=== PATIENT | female | born 2000 | race Caucasian/White ===

== ENCOUNTER → 2022-03-25 13:20 | Outpatient (BNVA) | payer MEDICAID, SELFPAY | PROVIDERS: Visit Provider Nurse Practitioner Women's Health | DX: N92.6 Irregular menstruation, unspecified (principal) | CPT/HCPCS: 81025 ==

== ENCOUNTER → 2022-04-01 13:47 | Outpatient (BNVA) | payer MEDICAID, SELFPAY | PROVIDERS: Visit Provider Obstetrics & Gynecology | DX: Z34.90 Encounter for supervision of normal pregnancy, unspecified, unspecified trimester (principal) | CPT/HCPCS: 80307; 81000; 84443; 85025; 86592; 86762; 86803; 86850; 86900; 87086; 87340; 87806 ==

== ENCOUNTER 2022-04-10 10:24 | Outpatient (CLI) | payer MEDICAID, SELFPAY ==
[2022-04-10 14:12] LABS: Creatinine 24 Hour Urine 1198.5 mg/dL (601-1689); Total Volume Urine 1275 ml; Total Volume, Urine 1275 mL; Urine Creatinine 94 mg/dL (28-217); Urine Total Protein 5.3 mg/dL (0-150); Urine Total Protein 24 Hour 67.6 mg/24hr (0-150)
== END 2022-04-10 10:25 | disposition home or self-care (01) ==
LOC: LAB 10:25
PROVIDERS: PCP Obstetrics & Gynecology; Visit Provider Obstetrics & Gynecology
DX: Z01.89 Encounter for other specified special examinations (principal)
CPT/HCPCS: 82570; 84156

== ENCOUNTER → 2022-04-22 13:34 | Outpatient (BNVA) | payer MEDICAID, SELFPAY | PROVIDERS: PCP Obstetrics & Gynecology; Visit Provider Obstetrics & Gynecology | DX: O09.899 Supervision of other high risk pregnancies, unspecified trimester (principal); Z3A.00 Weeks of gestation of pregnancy not specified | CPT/HCPCS: 81000; 87086; 87491; 87591; 87661; 88175 ==

== ENCOUNTER 2022-05-02 18:51 | Emergency (ER) | payer MEDICAID, SELFPAY ==
[2022-05-02 18:55] VITALS: BP 120/77; PULSE 69; RESP 18; TEMP 36.8; O2SAT 100; BMI 29.0
[2022-05-02 19:11] LABS: Add Urine Microscopic? NO; Charge for UA Resulting for Rev
[2022-05-02 19:13] LABS: Bilirubin Urine Neg (Negative); Blood Urine Neg (Negative); Glucose Urine UA Norm (Normal); Ketones Urine Negative (Negative); Leukocyte Esterase Urine Negative (Negative); Nitrate Urine Negative (Negative); Protein Urine Neg (Negative); Urine Appearance Clear (CLEAR); Urine Color Straw (Yellow); Urobilinogen Urine Neg (Negative); pH Urine 7 (5-7)
[2022-05-02 19:29] LABS: Basophils % 0.3 %; Eosinophils # 0.1 10^3/uL (0.0-0.8); Eosinophils % 0.6 %; Hematocrit 41.6 % (37.0-47.0); Hemoglobin 14.1 g/dL (11.5-15.3); Lymphocytes # 2.5 10^3/uL (0.8-4.8); Lymphocytes % 24.5 %; Mean Corpuscular HGB Conc 33.9 g/dL (30.0-36.0); Mean Corpuscular Hemoglobin 29.8 pg (28.0-34.0); Mean Corpuscular Volume 87.9 fl (81-99); Mean Platelet Volume 10.8 fL (7.4-10.4); Monocytes # 0.5 10^3/uL (0.2-0.9); Monocytes % 4.5 %; Neutrophils # 6.95 10^3/uL (1.8-7.7); Neutrophils % 69.5 %; Nucleated Red Blood Cells % 0 %; Platelet Count 198 10^3/cmm (130-400); Red Blood Count 4.73 10^6/uL (4.1-5.3); Red Cell Distribution Width 11.9 % (12.1-15.1)
[2022-05-02 20:03] LABS: Alanine Aminotransferase 17 U/L (0-33); Albumin Level 3.9 g/dL (3.5-5.2); Alkaline Phosphatase 52 U/L (35-105); Anion Gap 11.7 (5-19); Aspartate Amino Transferase 19 U/L (0-32); Blood Urea Nitrogen 8 mg/dL (6-20); Calcium 9.5 mg/dL (8.5-10.5); Carbon Dioxide 25 mmol/L (22-29); Chloride 98 mmol/L (98-107); Globulin 3.2 g/dL (1.3-4.6); Glomerular Filtration Rate 199.6 mL/min (90-130); Glucose 83 mg/dL (65-115); Osmolality Calculated 269 mOsm/kg (285-295); Potassium 3.7 mmol/L (3.5-5.1); Sodium 131 mmol/L (136-145); Total Bilirubin 0.2 mg/dL (0.15-1.2); Total Protein 7.1 g/dL (6.6-8.7)
--- NOTE | 2022-05-02 20:11 | ED_ITS ---
HPI - Dizziness General: Chief Complaint: Dizziness Stated Complaint: dizzy, headache Time Seen by Provider: 05/02/22 20:00 Source: patient Mode of arrival: ambulatory Limitations: no limitations History of Present Illness: HPI Narrative: 21-year-old female who is currently 14 weeks states that she has had some dizziness over the last 2 weeks. States she had some nausea and with standing she had some feeling like she may pass out denies any vomiting denies any abdominal pain denies any chest pain or headache her blood pressure here is normal. Associated symptoms: Denies chest pain, chills, nausea or vomiting Review of Systems Const: Denies: fever(s), chills, body aches or change in appetite Eyes: Denies: blurry vision or eye discomfort ENMT: Denies: throat pain or dental pain Card: Denies: chest pain Resp: Denies: dyspnea GI: Denies: abdominal pain, nausea, vomiting or diarrhea : Denies: dysuria Musc: Denies: neck pain or back pain Skin/Breast: Denies: rash Neuro: Reports: dizziness Psych: Denies: depression Pradip/Lymph: Denies: easy bruising All/Imm: Denies: urticaria PFSH ED PFSH: Medical History History of pre-eclampsia induced at 36 weeks due to development of pre-eclampsia with first No pertinent past medical history neghx: htn,dm,thyroid,dvt/pe PCP: None Surgical History No pertinent past surgical history Family History Family/Other Breast cancer Paternal Aunt--dx age unknown Grandmother Diabetes Maternal Grandfather Diabetes Maternal Father Heart disease Hypertension Denies family history of Colon cancer Ovarian cancer Hypercholesteremia Uterine cancer Thyroid disease Stroke Social History Smoking and tobacco status: never smoked Female Reproductive History: Date of last menstrual period: 01/20/22 Physical Exam Const: COMMON NORMALS: no acute distress, patient oriented x3 and healthy appearing HENMT: COMMON NORMALS: normocephalic and atraumatic HEAD & SCALP: normocephalic and atraumatic Eye: COMMON NORMALS: Equal, round and reactive pupils present and EOMs intact bilaterally PUPIL: Yes Equal, round and reactive pupils present Neck/C-Spine: COMMON NORMALS: full ROM and supple Chest: COMMONS NORMALS: normal inspection of the chest and normal palpation of entire chest wall Resp: COMMON NORMALS: normal respiratory effort, No retractions, No use of accessory muscles and clear to auscultation bilaterally AUSCULTATION: clear to auscultation bilaterally Cardio: COMMON NORMALS: regular rate, regular rhythm and No murmurs present (Cardio) RATE: regular rate RHYTHM: regular rhythm GI: COMMON NORMALS: Normal to inspection, nondistended, normoactive bowel sounds present, Soft to palpation, non-tender and no masses PALPATION: Yes Soft to palpation Extremity: COMMON NORMALS: normal to inspection and full ROM Neuro: COMMON NORMALS: patient oriented x3, moves all extremities and no focal motor deficits Psych: COMMON NORMALS: mental status grossly normal, Normal thought process present and cooperative THOUGHT PROCESS: Normal thought process present Skin: COMMON NORMALS: no rashes or lesions noted and no wounds GENERAL SKIN EXAM: no rashes or lesions noted Course Vital Signs: Vital signs: Vital Signs Temperature 98.3 F 05/02/22 20:27 Pulse Rate 69 05/02/22 20:27 Respiratory Rate 18 05/02/22 20:27 Blood Pressure 120/77 05/02/22 20:27 Pulse Oximetry 100 05/02/22 20:27 Oxygen Delivery Me thod 05/02/22 20:27 MDM - Dizziness Medical Decision Making Patient presents here with some dizziness could be some dehydration she feels much improved after IV fluids and Reglan her blood work here is normal did a bedside ultrasound showed IUP consistent with dates heart rate of 148 we will prescribe her Reglan she is to follow-up with her OB she is return if worsening. Lab Data : 05/02/22 19:05 05/02/22 19:05 Laboratory Results WBC 10.0 10^3/uL (4.0-10.0) 05/02/22 19:05 RBC 4.73 10^6/uL (4.1-5.3) 05/02/22 19:05 Hgb 14.1 g/dL (11.5-15.3) 05/02/22 19:05 Hct 41.6 % (37.0-47.0) 05/02/22 19:05 MCV 87.9 fl (81-99) 05/02/22 19:05 MCH 29.8 pg (28.0-34.0) 05/02/22 19:05 MCHC 33.9 g/dL (30.0-36.0) 05/02/22 19:05 RDW 11.9 % (12.1-15.1) L 05/02/22 19:05 Plt Count 198 10^3/cmm (130-400) 05/02/22 19:05 MPV 10.8 fL (7.4-10.4) H 05/02/22 19:05 Neut % (Auto) 69.5 % 05/02/22 19:05 Lymph % (Auto) 24.5 % 05/02/22 19:05 [place] % (Auto) 4.5 % 05/02/22 19:05 Eos % (Auto) 0.6 % 05/02/22 19:05 Baso % (Auto) 0.3 % 05/02/22 19:05 Neut # (Auto) 6.95 10^3/uL (1.8-7.7) 05/02/22 19:05 Lymph # (Auto) 2.5 10^3/uL (0.8-4.8) 05/02/22 19:05 [place] # (Auto) 0.5 10^3/uL (0.2-0.9) 05/02/22 19:05 Eos # (Auto) 0.1 10^3/uL (0.0-0.8) 05/02/22 19:05 Baso # (Auto) 0.0 10^3/uL (0.0-0.1) 05/02/22 19:05 Nucleated RBC % (auto) 0 % 05/02/22 19:05 Nucleated RBCs # 0.0 /100WBC 05/02/22 19:05 Sodium 131 mmol/L (136-145) L 05/02/22 19:05 Potassium 3.7 mmol/L (3.5-5.1) 05/02/22 19:05 Chloride 98 mmol/L (98-107) 05/02/22 19:05 Carbon Dioxide 25 mmol/L (22-29) 05/02/22 19:05 Anion Gap 11.7 (5-19) 05/02/22 19:05 BUN 8 mg/dL (6-20) 05/02/22 19:05 Creatinine 0.4 mg/dL (0.5-0.9) L 05/02/22 19:05 GFR Calculation 199.6 mL/min (90-130) H 05/02/22 19:05 Glucose 83 mg/dL (65-115) 05/02/22 19:05 Calculated Osmolality 269 mOsm/kg (285-295) L 05/02/22 19:05 Calcium 9.5 mg/dL (8.5-10.5) 05/02/22 19:05 Total Bilirubin 0.2 mg/dL (0.15-1.2) 05/02/22 19:05 AST 19 U/L (0-32) 05/02/22 19:05 ALT 17 U/L (0-33) 05/02/22 19:05 Alkaline Phosphatase 52 U/L (35-105) 05/02/22 19:05 Total Protein 7.1 g/dL (6.6-8.7) 05/02/22 19:05 Albumin 3.9 g/dL (3.5-5.2) 05/02/22 19:05 Globulin 3.2 g/dL (1.3-4.6) 05/02/22 19:05 Urine Color Straw (Yellow) 05/02/22 19:05 Urine Appearance Clear (CLEAR) 05/02/22 19:05 Urine pH 7 (5-7) 05/02/22 19:05 Ur Specific [place] 1.000 (1.005-1.030) L 05/02/22 19:05 Urine Protein Neg (Negative) 05/02/22 19:05 Urine Glucose (UA) Norm (Normal) 05/02/22 19:05 Urine Ketones Negative (Negative) 05/02/22 19:05 Urine Blood Neg (Negative) 05/02/22 19:05 Urine Nitrate Negative (Negative) 05/02/22 19:05 Urine Bilirubin Neg (Negative) 05/02/22 19:05 Urine Urobilinogen Neg mg/dL (Negative) 05/02/22 19:05 Ur Leukocyte Esterase Negative (Negative) 05/02/22 19:05 Discharge Plan Discharge Patient Disposition: Home Clinical Impression: Dizziness Condition: Stable Prescriptions: New metoclopramide HCl [Reglan] 10 mg tablet 10 mg PO Q6H PRN (Reason: nausea and vomiting) Qty: 20 0RF No Action prenat.vits,roxanne,[id number]-puqs-[id number] Tablet 1 tab PO DAILY Discharge Orders: Discharge ED (Routine); Ordered 05/02/22 Ordered By: Atif Avrey Referrals: Melany Gamble MD [Primary Care Provider] - 1-3 days Discharge Diet: Advance as tolerated Discharge Activity: Resume usual activity Patient Instructions: Dizziness (ED) Coding Level of Care Code ED Integration Software Engineer for Chg Fwd Exam Comprehensive
[2022-05-02] MEDS: sodium chloride 0.9% 1,000 ML 999 ML IV (20:26)
[2022-05-02 20:27] VITALS: BP 120/77; PULSE 69; RESP 18; TEMP 36.8; O2SAT 100
[2022-05-02] MEDS: metoclopramide 10 mg Tablet PO (20:27)
[2022-05-02 21:05] VITALS: PULSE 88; RESP 18; O2SAT 99
== END 2022-05-02 21:06 | disposition home or self-care (01) ==
PROVIDERS: Emergency Provider Emergency Medicine; PCP Obstetrics & Gynecology
DX: R42 Dizziness and giddiness (principal)
CPT/HCPCS: 36415; 80053; 81003; 85025; 96360; 99284; J7030; J8597

== ENCOUNTER → 2022-05-20 15:00 | Outpatient (BNVA) | payer MEDICAID, SELFPAY | PROVIDERS: PCP Obstetrics & Gynecology; Visit Provider Obstetrics & Gynecology | DX: O09.899 Supervision of other high risk pregnancies, unspecified trimester (principal) | CPT/HCPCS: 80307; 81000; 87086 ==

== ENCOUNTER → 2022-07-15 15:19 | Outpatient (BNVA) | payer MEDICAID, SELFPAY | PROVIDERS: PCP Obstetrics & Gynecology; Visit Provider Obstetrics & Gynecology | DX: O09.899 Supervision of other high risk pregnancies, unspecified trimester (principal) | CPT/HCPCS: 81000; 84443; 85027; 86592; 86762; 86803; 86850; 86900; 87340; 87806 ==

== ENCOUNTER 2022-08-04 15:38 | Outpatient (CLI) | payer MEDICAID, SELFPAY ==
[2022-08-04] VITALS (11 sets, daily range): BP systolic 118–152; BP diastolic 66–87; PULSE 80–101; RESP 16; TEMP 36.8; BMI 31.4
[2022-08-04 16:44] LABS: Add Urine Microscopic? NO; Charge for UA Resulting for Rev
[2022-08-04 16:46] LABS: Basophils % 0.2 %; Eosinophils % 0.1 %; Hematocrit 35.7 % (37.0-47.0); Hemoglobin 11.9 g/dL (11.5-15.3); Lymphocytes # 1.8 10^3/uL (0.8-4.8); Lymphocytes % 14.2 %; Mean Corpuscular HGB Conc 33.3 g/dL (30.0-36.0); Mean Corpuscular Hemoglobin 29.4 pg (28.0-34.0); Mean Corpuscular Volume 88.1 fl (81-99); Mean Platelet Volume 10.8 fL (7.4-10.4); Monocytes # 0.3 10^3/uL (0.2-0.9); Monocytes % 2.6 %; Neutrophils # 10.65 10^3/uL (1.8-7.7); Neutrophils % 82.4 %; Nucleated Red Blood Cells % 0 %; Platelet Count 222 10^3/cmm (130-400); Red Blood Count 4.05 10^6/uL (4.1-5.3); Red Cell Distribution Width 12.1 % (12.1-15.1); White Blood Count 12.9 10^3/uL (4.0-10.0)
[2022-08-04 16:57] LABS: Bilirubin Urine Neg (Negative); Blood Urine Neg (Negative); Glucose Urine UA Norm (Normal); Ketones Urine 2+ (Negative); Leukocyte Esterase Urine Negative (Negative); Nitrate Urine Negative (Negative); Protein Urine Neg (Negative); Specific Gravity, Urine 1.015 (1.005-1.030); Urine Appearance Clear (CLEAR); Urine Color Yellow (Yellow); Urobilinogen Urine Neg (Negative); pH Urine 6 (5-7)
[2022-08-04 17:37] LABS: Alanine Aminotransferase 19 U/L (0-33); Albumin Level 3.3 g/dL (3.5-5.2); Alkaline Phosphatase 78 U/L (35-105); Anion Gap 14.7 (5-19); Aspartate Amino Transferase 20 U/L (0-32); Blood Urea Nitrogen 10 mg/dL (6-20); Carbon Dioxide 21 mmol/L (22-29); Chloride 104 mmol/L (98-107); Globulin 3.2 g/dL (1.3-4.6); Glucose 100 mg/dL (65-115); Osmolality Calculated 281 mOsm/kg (285-295); Potassium 3.7 mmol/L (3.5-5.1); Sodium 136 mmol/L (136-145); Total Bilirubin 0.2 mg/dL (0.15-1.2); Total Protein 6.5 g/dL (6.6-8.7); Uric Acid 3.7 mg/dL (2.4-5.7)
[2022-08-04 17:42] LABS: Urine Creatinine 174 mg/dL (28-217); Urine Protein Random 8 mg/dL
[2022-08-04 17:43] LABS: UPRO/UCREAT Ratio 0.05 mg/mg CR
== END 2022-08-04 18:15 | disposition home or self-care (01) ==
LOC: OPOB 15:42 → OBGYN 15:43
PROVIDERS: PCP Obstetrics & Gynecology; Visit Provider Obstetrics & Gynecology
DX: O36.8190 Decreased fetal movements, unspecified trimester, not applicable or unspecified (principal); Z3A.00 Weeks of gestation of pregnancy not specified
CPT/HCPCS: 36415; 80053; 81003; 82570; 84156; 84550; 85025; 99211

== ENCOUNTER → 2022-08-05 11:10 | Outpatient (BNVA) | payer MEDICAID, SELFPAY | PROVIDERS: PCP Obstetrics & Gynecology; Visit Provider Obstetrics & Gynecology | DX: O09.899 Supervision of other high risk pregnancies, unspecified trimester (principal) | CPT/HCPCS: 81000; 82950; 87086 ==

== ENCOUNTER → 2022-08-25 14:31 | Outpatient (BNVA) | payer MEDICAID, SELFPAY | PROVIDERS: PCP Obstetrics & Gynecology; Visit Provider Obstetrics & Gynecology | DX: O09.899 Supervision of other high risk pregnancies, unspecified trimester (principal) | CPT/HCPCS: 81000 ==

== ENCOUNTER → 2022-09-08 14:47 | Outpatient (BNVA) | payer MEDICAID, SELFPAY | PROVIDERS: PCP Obstetrics & Gynecology; Visit Provider Obstetrics & Gynecology | DX: O09.899 Supervision of other high risk pregnancies, unspecified trimester (principal) | CPT/HCPCS: 81000; 87086 ==

== ENCOUNTER 2022-09-22 15:55 | Outpatient (CLI) | payer MEDICAID, SELFPAY ==
[2022-09-22 16:03] VITALS: BP 125/78; PULSE 99
[2022-09-22 16:04] VITALS: BMI 34.1
[2022-09-22 16:06] VITALS: TEMP 36.2
== END 2022-09-22 16:53 | disposition home or self-care (01) ==
LOC: OPOB 15:55 → OBGYN 15:56
PROVIDERS: PCP Obstetrics & Gynecology; Visit Provider Obstetrics & Gynecology
DX: O26.899 Other specified pregnancy related conditions, unspecified trimester (principal); Z3A.00 Weeks of gestation of pregnancy not specified
CPT/HCPCS: 59025; 84315; 85025; 87086; 99211

== ENCOUNTER 2022-09-29 11:34 | Outpatient (CLI) | payer MEDICAID, SELFPAY ==
[2022-09-29 11:40] VITALS: BMI 34.4
[2022-09-29 11:54] VITALS: BP 127/77; PULSE 109; TEMP 35.2
[2022-09-29 12:14] VITALS: BP 129/84; PULSE 93
[2022-09-29 12:23] LABS: Basophils % 0.2 %; Eosinophils % 0.3 %; Hematocrit 36.9 % (37.0-47.0); Hemoglobin 12.5 g/dL (11.5-15.3); Lymphocytes # 1.7 10^3/uL (0.8-4.8); Lymphocytes % 16.9 %; Mean Corpuscular HGB Conc 33.9 g/dL (30.0-36.0); Mean Corpuscular Hemoglobin 29.7 pg (28.0-34.0); Mean Corpuscular Volume 87.6 fl (81-99); Mean Platelet Volume 11.6 fL (7.4-10.4); Monocytes # 0.4 10^3/uL (0.2-0.9); Monocytes % 3.7 %; Neutrophils # 7.81 10^3/uL (1.8-7.7); Neutrophils % 78.2 %; Nucleated Red Blood Cells % 0 %; Platelet Count 215 10^3/cmm (130-400); Red Blood Count 4.21 10^6/uL (4.1-5.3); Red Cell Distribution Width 12.5 % (12.1-15.1)
[2022-09-29 12:34] VITALS: BP 129/67; PULSE 101
[2022-09-29 12:44] LABS: Alanine Aminotransferase 77 U/L (0-33); Albumin Level 3.3 g/dL (3.5-5.2); Alkaline Phosphatase 137 U/L (35-105); Anion Gap 15.2 (5-19); Aspartate Amino Transferase 48 U/L (0-32); Blood Urea Nitrogen 8 mg/dL (6-20); Calcium 8.6 mg/dL (8.5-10.5); Carbon Dioxide 22 mmol/L (22-29); Chloride 105 mmol/L (98-107); Globulin 3.1 g/dL (1.3-4.6); Glomerular Filtration Rate 278.2 mL/min (90-130); Glucose 91 mg/dL (65-115); Osmolality Calculated 284 mOsm/kg (285-295); Potassium 4.2 mmol/L (3.5-5.1); Sodium 138 mmol/L (136-145); Total Bilirubin 0.2 mg/dL (0.15-1.2); Total Protein 6.4 g/dL (6.6-8.7); Uric Acid 4.4 mg/dL (2.4-5.7)
[2022-09-29 12:49] LABS: Add Urine Microscopic? YES; Bilirubin Urine Neg (Negative); Blood Urine Neg (Negative); Glucose Urine UA Norm (Normal); Ketones Urine Negative (Negative); Leukocyte Esterase Urine Trace (Negative); Nitrate Urine Negative (Negative); Protein Urine Neg (Negative); Specific Gravity, Urine 1.015 (1.005-1.030); Urine Appearance Cloudy (CLEAR); Urine Color Yellow (Yellow); Urobilinogen Urine 1 mg/dL (Negative); pH Urine 7 (5-7)
[2022-09-29 12:51] LABS: Add Urine Culture? Yes; Amorphous Sediment Urine 1+ /hpf; Bacteria Urine 1+ /hpf; Mucus Urine TRACE /hpf; RBC Urine RARE /hpf (0-2); WBC Urine 0-4 /hpf (0-5)
[2022-09-29 12:54] VITALS: BP 125/72; PULSE 86
[2022-09-29 12:59] LABS: Urine Creatinine 103 mg/dL (28-217); Urine Protein Random 11 mg/dL
[2022-09-29 13:00] LABS: UPRO/UCREAT Ratio 0.11 mg/mg CR
[2022-09-29 13:14] VITALS: BP 119/70; PULSE 88
[2022-09-29 13:40] VITALS: BP 119/70; PULSE 88; RESP 18
== END 2022-09-29 13:40 | disposition home or self-care (01) ==
LOC: OPOB 11:38 → OBGYN 11:39
PROVIDERS: PCP Obstetrics & Gynecology; Visit Provider Obstetrics & Gynecology
DX: O16.9 Unspecified maternal hypertension, unspecified trimester (principal); Z3A.00 Weeks of gestation of pregnancy not specified
CPT/HCPCS: 36415; 59025; 80053; 81000; 81001; 82570; 84156; 84550; 85025; 87081; 87086; 99211

== ENCOUNTER 2022-10-06 15:46 | Inpatient (IN) | payer MEDICAID, SELFPAY ==
[2022-10-06] VITALS (30 sets, daily range): BP systolic 96–134; BP diastolic 52–78; PULSE 65–105; RESP 15–18; TEMP 36.6–36.7; O2SAT 97–100; BMI 31.4; BMI 34.6
[2022-10-06 15:03] LABS: Basophils % 0.2 %; Eosinophils % 0.2 %; Hematocrit 38.5 % (37.0-47.0); Hemoglobin 12.8 g/dL (11.5-15.3); Lymphocytes # 1.7 10^3/uL (0.8-4.8); Lymphocytes % 16.5 %; Mean Corpuscular HGB Conc 33.2 g/dL (30.0-36.0); Mean Corpuscular Hemoglobin 28.9 pg (28.0-34.0); Mean Corpuscular Volume 86.9 fl (81-99); Mean Platelet Volume 11.7 fL (7.4-10.4); Monocytes # 0.3 10^3/uL (0.2-0.9); Neutrophils # 8.07 10^3/uL (1.8-7.7); Neutrophils % 79.2 %; Nucleated Red Blood Cells % 0 %; Platelet Count 221 10^3/cmm (130-400); Red Blood Count 4.43 10^6/uL (4.1-5.3); Red Cell Distribution Width 12.6 % (12.1-15.1); White Blood Count 10.2 10^3/uL (4.0-10.0)
[2022-10-06 15:15] LABS: Bilirubin Urine Neg (Negative); Blood Urine Neg (Negative); Glucose Urine UA Norm (Normal); Ketones Urine Negative (Negative); Leukocyte Esterase Urine 2+ (Negative); Nitrate Urine Negative (Negative); Protein Urine Neg (Negative); Urine Appearance Cloudy (CLEAR); Urine Color Yellow (Yellow); Urobilinogen Urine 1 mg/dL (Negative); WBC Urine 15-25 /hpf (0-5); pH Urine 7 (5-7)
[2022-10-06 15:16] LABS: Add Urine Culture? No; Bacteria Urine 3+ /hpf; Squamous Epithelial Cell Urine 15-25 /hpf (0-5)
[2022-10-06 15:21] LABS: Alanine Aminotransferase 93 U/L (0-33); Albumin Level 3.1 g/dL (3.5-5.2); Alkaline Phosphatase 135 U/L (35-105); Anion Gap 16.1 (5-19); Aspartate Amino Transferase 48 U/L (0-32); Blood Urea Nitrogen 10 mg/dL (6-20); Calcium 8.6 mg/dL (8.5-10.5); Carbon Dioxide 20 mmol/L (22-29); Chloride 106 mmol/L (98-107); Globulin 3.2 g/dL (1.3-4.6); Glomerular Filtration Rate 199.6 mL/min (90-130); Glucose 107 mg/dL (65-115); Osmolality Calculated 286 mOsm/kg (285-295); Potassium 4.1 mmol/L (3.5-5.1); Sodium 138 mmol/L (136-145); Total Bilirubin 0.3 mg/dL (0.15-1.2); Total Protein 6.3 g/dL (6.6-8.7); Uric Acid 4.3 mg/dL (2.4-5.7)
[2022-10-06 15:28] LABS: Urine Creatinine 142 mg/dL (28-217); Urine Protein Random 17 mg/dL
[2022-10-06 15:32] LABS: UPRO/UCREAT Ratio 0.12 mg/mg CR
--- NOTE | 2022-10-06 16:09 | ANES.PREANE2 ---
Pre-Anesthetic Assessment Height/Weight: Height 1.7 m Weight 91.172 kg Pulse BP 77 123/70 10/06/22 15:57 10/06/22 15:57 Familial anesthetic complications: None Last intake: Chicken sandwich before 1 pm Social No alcohol and No tobacco Airway Mallampati: Class II Dentition: chipped CV/HEM HTN (Preeclampsia w/ breech presentation) Anesthetic Plan ASA status: 2E Anesthesia: Regional (specify below) Risk of > 500 ml blood loss (7ml/kg in children): Yes, adequate IV access and fluids planned Other Pertinent Information Discussed ASA [address] Gamble. Unfortunately she feels there is elevated risk for exponential rise in LFTs and risk of liver capsular rupture with an 8 hr delay. Will proceed as soon as able per OB recommendations. Patient informed of aspiration risks - will administer aspiration prophylaxis Medications/Allergies Home Medications Medication Instructions Recorded Confirmed Last Taken Type prenat.vits,roxanne,orr-[id number] 1 tab PO DAILY 03/25/22 10/06/22 09/28/22 20:00 History citalopram 20 mg tablet (Celexa) 20 mg PO DAILY #30 tabs 05/17/22 10/06/22 09/29/22 07:30 Rx ferrous sulfate 325 mg (65 mg 325 mg PO DAILY 09/08/22 10/06/22 09/28/22 20:00 History iron) tablet Allergies Allergy/AdvReac Type Severity Reaction Status Date / Time No Known Allergies Allergy Verified 10/06/22 13:48 [facility] Anesthesia Medical History History of pre-eclampsia induced at 36 weeks due to development of pre-eclampsia with first No pertinent past medical history neghx: htn,dm,thyroid,dvt/pe PCP: None Surgical History No pertinent past surgical history Family History Family/Other Breast cancer Paternal Aunt--dx age unknown Grandmother Diabetes Maternal Grandfather Diabetes Maternal Father Heart disease Hypertension Denies family history of Colon cancer Ovarian cancer Hypercholesteremia Uterine cancer Thyroid disease Stroke Social History Smoking and tobacco status: never smoked Female Reproductive History : 2 Data Anesthesia 10/06/22 14:45 10/06/22 14:45 Short CBC 10/06/22 Range/Units 14:45 WBC 10.2 H (4.0-10.0) 10^3/uL Hgb 12.8 (11.5-15.3) g/dL Hct 38.5 (37.0-47.0) % MCV 86.9 (81-99) fl Plt Count 221 (130-400) 10^3/cmm Neut % (Auto) 79.2 % Neut # (Auto) 8.07 H (1.8-7.7) 10^3/uL BMP 10/06/22 14:45 Sodium 138 Potassium 4.1 Chloride 106 Carbon Dioxide 20 L BUN 10 Creatinine 0.4 L Glucose 107 Calcium 8.6 Liver Function 10/06/22 Range/Units 14:45 Total Bilirubin 0.3 (0.15-1.2) mg/dL AST 48 H (0-32) U/L ALT 93 H (0-33) U/L Alkaline Phosphatase 135 H (35-105) U/L Albumin 3.1 L (3.5-5.2) g/dL Urine 10/06/22 Range/Units 14:30 Urine Color Yellow (Yellow) Urine Appearance Cloudy A (CLEAR) Urine pH 7 (5-7) Ur Specific [place] 1.020 (1.005-1.030) Urine Protein Neg (Negative) Urine Glucose (UA) Norm (Normal) Urine Ketones Negative (Negative) Urine Nitrate Negative (Negative) Urine Bilirubin Neg (Negative) Ur Leukocyte Esterase 2+ H (Negative) Urine RBC None (0-2) /hpf Urine WBC 15-25 H (0-5) /hpf Cardiac Studies: No Data to Display
[2022-10-06] MEDS: magnesium sulfate premix 4 GM/100 ML PREMIX IV (16:25)
[2022-10-06] MEDS: magnesium sulfate premix 20 GM/500 ML BAG IV (16:26)
[2022-10-06] MEDS: dextrose 5%-lactated ringers 1,000 ML 125 ML IV ×2 (16:26→23:00)
[2022-10-06] MEDS: metoclopramide 5 mg/mL SDV 2 mL 10 MG IVP (18:34)
[2022-10-06] MEDS: ceFAZolin 2,000 MG in sodium chloride 0.9% (plus) 50 ML 100 MG IV (18:35)
[2022-10-06] MEDS: famotidine 20 mg/2 mL INJ IVP (18:35)
[2022-10-06] MEDS: citric acid-sodium citrate 30 mL UDC PO (18:35)
--- NOTE | 2022-10-06 20:32 | PM.OP ---
Operative Report Date of procedure: October 06, 2022 Pre-op diagnosis: severe preeclampsia, breech presentation Post-op diagnosis: same Post-op diagnosis: single footling breech presentation Post-op findings: Term female Procedure done: primary Specimens removed/disposition: placenta Surgeon: Melany Gamble Anesthesia: Other (spinal) Estimated blood loss (mL): 250 IV fluids (mL): 1,600 Urine output (mL): 300 Complications: none Findings: Term female in the single footling breech presentation Condition: stable Disposition: PACU Brief History: The patient was seen in the office today. She had elevated blood pressure. She also had elevated blood pressure last week with negative work up. She was found to have elevated liver enzymes at 3x normal values. Procedure: The patient was taken to the operating room where spinal anesthesia was administered and found to be adequate. She was prepped and draped in the normal sterile fashion in the dorsal supine position with a leftward tilt. A Pfannenstiel skin incision was made and carried down to the underlying layer of fascia. The fascia was nicked in the midline and extended laterally with the Lynn scissors. The fascia was then tented up and the rectus muscles dissected off sharply. The rectus muscles were and the peritoneum entered bluntly with the digit. The peritoneal incision was extended superiorly and inferiorly with good visualization of the bladder. The Yassine O retractor was placed. It was clear of any bowel or omentum. The bladder flap was created sharply with the Metzenbaum scissors. A low transverse uterine incision was made and carried down to the bag of water. The bag of water was ruptured and the uterine incision extended cephalocaudad. The feet were grasped and brought through the incision. The body, shoulders and head followed. The baby had decreased tone at . The umbilical cord was immediately clamped and cut and handed to the waiting pediatric nurse. The placenta was delivered by expression. The uterus was exteriorized and cleared of all clots and debris. The uterus had decreased tone. 20 units of pitocin was injected into the fundus and the uterus immediately firmed up. The uterine incision was closed with 0 Vicryl in a running fashion. A second imbricating layer of 3-0 Monocryl was used to close the uterus. The bladder flap was closed with 3-0 Monocryl. There was excellent hemostasis. The Yassine O retractor was removed. The uterus was returned to the abdomen. The peritoneum was closed with 3-0 Monocryl, incorporating the rectus muscle. The fascia was closed with 0 Vicryl in 2 separate sutures overlapping in the midline. The skin was closed with absorbable dany. Apgars on baby 3 at 1 minute, 7 at 5 minutes and 9 at 10 minutes. weight 6 pounds 1 ounce. Mother and baby were stable post delivery.
--- NOTE | 2022-10-06 21:00 | ANE.PACU2 ---
Inpatient post-anesthesia follow up: Airway intact: Yes Vital signs: Temperature 98 F Pulse Rate 75 Respiratory Rate 16 Blood Pressure 116/61 Pulse Oximetry 99 Oxygen Delivery Me thod Room Air Oxygen Flow Rate Fraction of Inspir ed Oxygen Hydration adequate: Yes Nausea and vomiting: No Pain level: 1 Mental status: Baseline
[2022-10-06] MEDS: ketorolac 30 mg/mL INJ IVP (21:36)
[2022-10-06] MEDS: diphenhydrAMINE 50 mg/mL SDV 1mL 25 MG IVP (22:10)
[2022-10-06 22:26] LABS: Amphetamines Screen Urine Negative (Negative); Barbiturates Screen Urine Negative (Negative); Benzodiazepines Screen Urine Negative (Negative); Cocaine Screen Urine Negative (Negative); Opiate Screen Urine Negative (Negative); PCP Screen Urine Negative (Negative); THC Screen Urine Positive (Negative)
[2022-10-06 23:48] LABS: Magnesium Level (OB Only) 4.6 mg/dL (5.0-7.5)
[2022-10-07] VITALS (26 sets, daily range): BP systolic 103–124; BP diastolic 53–70; PULSE 62–87; RESP 16; TEMP 36.6–36.7
[2022-10-07] MEDS: magnesium sulfate premix 20 GM/500 ML BAG IV ×2 (00:39→10:12)
[2022-10-07] MEDS: ketorolac 30 mg/mL INJ IVP ×2 (04:45→09:52)
[2022-10-07] MEDS: docusate sodium 100 mg Capsule PO ×2 (09:53→20:18)
[2022-10-07 10:10] LABS: Hematocrit 37.8 % (37.0-47.0); Hemoglobin 12.5 g/dL (11.5-15.3); Mean Corpuscular HGB Conc 33.1 g/dL (30.0-36.0); Mean Corpuscular Hemoglobin 29.2 pg (28.0-34.0); Mean Corpuscular Volume 88.3 fl (81-99); Mean Platelet Volume 11.5 fL (7.4-10.4); Platelet Count 212 10^3/cmm (130-400); Red Blood Count 4.28 10^6/uL (4.1-5.3); Red Cell Distribution Width 12.7 % (12.1-15.1); White Blood Count 16.5 10^3/uL (4.0-10.0)
[2022-10-07 10:40] LABS: Magnesium Level (OB Only) 5.9 mg/dL (5.0-7.5)
[2022-10-07] MEDS: citalopram 20 mg Tablet PO (11:04)
[2022-10-07] MEDS: acetaminophen 325 mg Tablet 650 MG PO (11:53)
[2022-10-07] MEDS: dextrose 5%-lactated ringers 1,000 ML 50 ML IV (11:54)
--- NOTE | 2022-10-07 16:25 | PM.PN ---
Subjective Subjective: The patient is doing well this morning. No concerns. She is very hungry Vitals/I&O/Wt Last Vital Signs Temp 98 F 10/06/22 20:36 Pulse 81 10/07/22 15:51 Resp 16 10/06/22 20:36 BP 123/58 10/07/22 15:51 Pulse Ox 99 10/06/22 20:36 O2 Del Method 10/06/22 20:36 10/07/22 10/07/22 10/07/22 06:59 14:59 22:59 Intake Total 3010.833 / 3160.833 477.5 / 477.5 Output Total 1465 / 1885 720 / 720 Balance 1545.833 / 1275.833 -242.5 / -242.5 Weight last 48 hrs Weight 221 lb Weight 221 lb Weight 201 lb Physical Exam Narrative: Blood pressures have been normal. Pain is well controlled. No concerns Const: COMMON NORMALS: no acute distress, patient oriented x3, no limitations, healthy appearing, alert and well nourished GENERAL APPEARANCE: cooperative, comfortable, well kempt and well developed ORIENTATION/CONSCIOUSNESS: Yes awake, Yes oriented to person, Yes oriented to place and Yes oriented to time Resp: COMMON NORMALS: normal respiratory effort EFFORT & INSPECTION: Yes able to speak in complete sentences GI: COMMON NORMALS: Soft to palpation and non-tender PALPATION: Yes Soft to palpation Extremity: COMMON NORMALS: no calf tenderness Neuro: COMMON NORMALS: patient oriented x3 SENSORIUM/ORIENTATION: Yes alert, Yes oriented to person, Yes oriented to place and Yes oriented to time Psych: APPEARANCE: Yes well kempt Skin: WOUNDS: Yes surgical site (clean/dry/covered) Urinary Catheter Management: Conner: Cath Placed During This Visit: yes Reason for Continuing Indwelling Catheter: Accurate Measurement of Urinary Output in Critically Ill Patients Urinary Catheter Date of Insertion: 10/06/22 Urinary Catheter Time of Insertion: 16:00 Data 10/07/22 10:00 10/06/22 14:45 A&P Assessment and plan (1) Severe preeclampsia: continue mag sulfate for 24 hours blood pressures have all been normal (2) Increased liver enzymes: Redraw daily to assure they are trending down. Attestations Medical Necessity Statement*: The patient had a . She will be here for two midnights Coding Level of Care Code Acute Code for Chg Fwd Diagnoses Severe preeclampsia O14.10 Increased liver enzymes R74.8
[2022-10-07 17:00] LABS: Alanine Aminotransferase 76 U/L (0-33); Albumin Level 2.9 g/dL (3.5-5.2); Alkaline Phosphatase 130 U/L (35-105); Anion Gap 14.1 (5-19); Aspartate Amino Transferase 42 U/L (0-32); Blood Urea Nitrogen 9 mg/dL (6-20); Calcium 7.3 mg/dL (8.5-10.5); Carbon Dioxide 23 mmol/L (22-29); Chloride 101 mmol/L (98-107); Glomerular Filtration Rate 154.3 mL/min (90-130); Glucose 73 mg/dL (65-115); Osmolality Calculated 275 mOsm/kg (285-295); Potassium 4.1 mmol/L (3.5-5.1); Sodium 134 mmol/L (136-145); Total Bilirubin 0.3 mg/dL (0.15-1.2); Total Protein 5.9 g/dL (6.6-8.7)
[2022-10-07] MEDS: HYDROcodone-acetaminophen 5-325 mg Tablet PO (18:49)
[2022-10-08] VITALS (7 sets, daily range): BP systolic 111–123; BP diastolic 57–60; PULSE 70–84; RESP 16–18; TEMP 36.7–37
[2022-10-08] MEDS: HYDROcodone-acetaminophen 5-325 mg Tablet PO ×2 (04:13→14:05)
[2022-10-08 05:30] LABS: Alanine Aminotransferase 63 U/L (0-33); Albumin Level 2.6 g/dL (3.5-5.2); Alkaline Phosphatase 116 U/L (35-105); Aspartate Amino Transferase 35 U/L (0-32); Blood Urea Nitrogen 11 mg/dL (6-20); Carbon Dioxide 26 mmol/L (22-29); Chloride 105 mmol/L (98-107); Glucose 79 mg/dL (65-115); Osmolality Calculated 284 mOsm/kg (285-295); Sodium 138 mmol/L (136-145); Total Bilirubin 0.3 mg/dL (0.15-1.2); Total Protein 5.6 g/dL (6.6-8.7)
[2022-10-08] MEDS: prenatal vitamin Capsule 1 CAP PO (10:10)
[2022-10-08] MEDS: docusate sodium 100 mg Capsule PO (10:10)
[2022-10-08] MEDS: ibuprofen 800 mg tablet PO ×2 (10:10→14:06)
[2022-10-08] MEDS: citalopram 20 mg Tablet PO (10:13)
[2022-10-08] MEDS: lanolin oint 7 gm 1 APPLIC TOPICAL (14:09)
--- NOTE | 2022-10-08 16:26 | PM.DCS ---
Discharge Providers Date of Admission: 10/06/22 15:46 Date of Discharge: October 08, 2022 Attending Provider at Admission: Melany Gamble MD Attending Provider at Discharge: Melany Gamble MD Primary Care Provider: Melany Gamble MD Diagnoses at Discharge Discharge Diagnosis (1) Severe preeclampsia: Status: Inactive (2) Increased liver enzymes: Status: Inactive Reason for Visit Reason for Visit: HYPERTENSION AT OFFICE Hospital Course Hospital Course The patient was admitted for severe preeclampsia. The criteria were liver enzyms at three times normal. She received magnesium sulfate for seizure prophylaxis. We had previously determined that her baby was breech. She opted for a primary over an external cephalic version. She received a primary . She had magnesium sulfate continued for 24 hours. Her blood pressures were normal. She did well postoperatively and on day #2, she was ready for discharge. Physical Exam Const: COMMON NORMALS: no acute distress, patient oriented x3, no limitations, healthy appearing, alert and well nourished GENERAL APPEARANCE: cooperative, comfortable, well kempt and well developed ORIENTATION/CONSCIOUSNESS: Yes awake, Yes oriented to person, Yes oriented to place and Yes oriented to time Resp: COMMON NORMALS: normal respiratory effort EFFORT & INSPECTION: Yes able to speak in complete sentences GI: COMMON NORMALS: Soft to palpation and non-tender PALPATION: Yes Soft to palpation Extremity: COMMON NORMALS: no calf tenderness Neuro: COMMON NORMALS: patient oriented x3 SENSORIUM/ORIENTATION: Yes alert, Yes oriented to person, Yes oriented to place and Yes oriented to time Psych: COMMON NORMALS: mental status grossly normal, Normal thought process present, cooperative, normal affect and speech normal APPEARANCE: Yes well kempt SPEECH: Yes normal speech THOUGHT PROCESS: Normal thought process present Urinary Catheter Management: Conner: Cath Placed During This Visit: yes, but has since been removed by the nurse Reason for Continuing Indwelling Catheter: Decision to DC Catheter Urinary Catheter Date of Insertion: 10/06/22 Urinary Catheter Time of Insertion: 16:00 Date Urinary Catheter Removed: 10/08/22 Time Urinary Catheter Discontinued: 04:18 Discharge Data Studies Completed and Pending Laboratory Results WBC 16.5 10^3/uL (4.0-10.0) H 10/07/22 10:00 RBC 4.28 10^6/uL (4.1-5.3) 10/07/22 10:00 Hgb 12.5 g/dL (11.5-15.3) 10/07/22 10:00 Hct 37.8 % (37.0-47.0) 10/07/22 10:00 MCV 88.3 fl (81-99) 10/07/22 10:00 MCH 29.2 pg (28.0-34.0) 10/07/22 10:00 MCHC 33.1 g/dL (30.0-36.0) 10/07/22 10:00 RDW 12.7 % (12.1-15.1) 10/07/22 10:00 Plt Count 212 10^3/cmm (130-400) 10/07/22 10:00 MPV 11.5 fL (7.4-10.4) H 10/07/22 10:00 Neut % (Auto) 79.2 % 10/06/22 14:45 Lymph % (Auto) 16.5 % 10/06/22 14:45 [place] % (Auto) 3.0 % 10/06/22 14:45 Eos % (Auto) 0.2 % 10/06/22 14:45 Baso % (Auto) 0.2 % 10/06/22 14:45 Neut # (Auto) 8.07 10^3/uL (1.8-7.7) H 10/06/22 14:45 Lymph # (Auto) 1.7 10^3/uL (0.8-4.8) 10/06/22 14:45 [place] # (Auto) 0.3 10^3/uL (0.2-0.9) 10/06/22 14:45 Eos # (Auto) 0.0 10^3/uL (0.0-0.8) 10/06/22 14:45 Baso # (Auto) 0.0 10^3/uL (0.0-0.1) 10/06/22 14:45 Nucleated RBC % (auto) 0 % 10/06/22 14:45 Nucleated RBCs # 0.0 /100WBC 10/06/22 14:45 Sodium 138 mmol/L (136-145) 10/08/22 05:00 Potassium 4.0 mmol/L (3.5-5.1) 10/08/22 05:00 Chloride 105 mmol/L (98-107) 10/08/22 05:00 Carbon Dioxide 26 mmol/L (22-29) 10/08/22 05:00 Anion Gap 11.0 (5-19) 10/08/22 05:00 BUN 11 mg/dL (6-20) 10/08/22 05:00 Creatinine 0.6 mg/dL (0.5-0.9) 10/08/22 05:00 GFR Calculation 125.0 mL/min (90-130) 10/08/22 05:00 Glucose 79 mg/dL (65-115) 10/08/22 05:00 Calculated Osmolality 284 mOsm/kg (285-295) L 10/08/22 05:00 Uric Acid 4.3 mg/dL (2.4-5.7) 10/06/22 14:45 Calcium 8.0 mg/dL (8.5-10.5) L 10/08/22 05:00 Magnesium 5.9 mg/dL (5.0-7.5) 10/07/22 10:00 Total Bilirubin 0.3 mg/dL (0.15-1.2) 10/08/22 05:00 AST 35 U/L (0-32) H 10/08/22 05:00 ALT 63 U/L (0-33) H 10/08/22 05:00 Alkaline Phosphatase 116 U/L (35-105) H 10/08/22 05:00 Total Protein 5.6 g/dL (6.6-8.7) L 10/08/22 05:00 Albumin 2.6 g/dL (3.5-5.2) L 10/08/22 05:00 Globulin 3.0 g/dL (1.3-4.6) 10/08/22 05:00 Urine Color Yellow (Yellow) 10/06/22 14:30 Urine Appearance Cloudy (CLEAR) A 10/06/22 14:30 Urine pH 7 (5-7) 10/06/22 14:30 Ur Specific [place] 1.020 (1.005-1.030) 10/06/22 14:30 Urine Protein Neg (Negative) 10/06/22 14:30 Urine Glucose (UA) Norm (Normal) 10/06/22 14:30 Urine Ketones Negative (Negative) 10/06/22 14:30 Urine Blood Neg (Negative) 10/06/22 14:30 Urine Nitrate Negative (Negative) 10/06/22 14:30 Urine Bilirubin Neg (Negative) 10/06/22 14:30 Urine Urobilinogen 1 mg/dL (Negative) H 10/06/22 14:30 Ur Leukocyte Esterase 2+ (Negative) H 10/06/22 14:30 Urine RBC None /hpf (0-2) 10/06/22 14:30 Urine WBC 15-25 /hpf (0-5) H 10/06/22 14:30 Ur Squamous Epith Cells 15-25 /hpf (0-5) H 10/06/22 14:30 Amorphous Sediment Not Reportable 10/06/22 14:30 Urine Bacteria 3+ /hpf (NONE) H 10/06/22 14:30 U Random Total Protein 17 mg/dL 10/06/22 14:30 Urine Creatinine 142 mg/dL (28-217) 10/06/22 14:30 Protein/Creatinin Ratio 0.12 mg/mg CR 10/06/22 14:30 Urine Opiates Screen Negative ng/mL (Negative) 10/06/22 14:30 Ur Barbiturates Screen Negative ng/mL (Negative) 10/06/22 14:30 Ur Phencyclidine Scrn Negative ng/mL (Negative) 10/06/22 14:30 Ur Amphetamines Screen Negative ng/mL (Negative) 10/06/22 14:30 U Benzodiazepines Scrn Negative ng/mL (Negative) 10/06/22 14:30 Urine Cocaine Screen Negative ng/mL (Negative) 10/06/22 14:30 U Marijuana (THC) Screen Positive ng/mL (Negative) H 10/06/22 14:30 Vitals Last Vital Signs Temp 98.1 F 10/08/22 15:55 Pulse 72 10/08/22 15:55 Resp 16 10/08/22 15:55 BP 123/58 10/08/22 15:55 Pulse Ox 99 10/06/22 20:36 O2 Del Method 10/06/22 20:36 Discharge Plan Discharge Patient Disposition: Home Condition: Stable Prescriptions: New ibuprofen 800 mg Tablet 800 mg PO TID Qty: 30 0RF hydrocodone-acetaminophen 5-325 mg Tablet 1 tab PO Q4H PRN (Reason: Moderate To Severe Pain) Qty: 30 0RF docusate sodium 100 mg Capsule 100 mg PO BID Qty: 60 0RF Continued ferrous sulfate 325 mg (65 mg iron) tablet 325 mg PO DAILY prenat.vits,roxanne,izr-vfwz-bhbnk Tablet 1 tab PO DAILY citalopram [Celexa] 20 mg tablet 20 mg PO DAILY Qty: 30 6RF Discharge Orders: Discharge Order (Routine); Ordered 10/08/22 Ordered By: Melany Gamble Patient Instructions: Depression (DC), Bleeding (DC), Preeclampsia and Eclampsia After Delivery (GEN), OB WHC, OB Discharge Report, OB Food/Drug Interaction Guide, Opioid Safety, OB Home Care Activity Restrictions/Additional Instructions: Please call [facility] for follow up incision check in 1 week from surgery date, and your care visits. [phone] Discharge Attestations Time Spent in Discharge Care*: less than 30 min Quality Metrics Clinical Quality Measures [ No reported AMI, CVA or VTE this stay] Coding Level of Care Code Acute Code for Chg Fwd Diagnoses Severe preeclampsia O14.10 Increased liver enzymes R74.8
== END 2022-10-08 17:27 | disposition home or self-care (01) | DRG 788 ==
LOC: OPOB 15:47 → OBGYN 15:47
PROVIDERS: Absent Provider Obstetrics & Gynecology; Admitting Provider Obstetrics & Gynecology; PCP Obstetrics & Gynecology; Visit Provider Obstetrics & Gynecology
PROC: 10D00Z1 Extraction of Products of Conception, Low, Open Approach (ICD-10-PCS; CPT 59514; principal; 2022-10-06 18:55)
DX: O14.14 Severe pre-eclampsia complicating childbirth (principal); Z3A.37 37 weeks gestation of pregnancy; Z37.0 Single live birth; O99.344 Other mental disorders complicating childbirth; O32.8XX0 Maternal care for other malpresentation of fetus, not applicable or unspecified; F41.8 Other specified anxiety disorders
CPT/HCPCS: 36415; 51702; 59025; 59409; 80053; 80306; 81000; 81001; 82570; 83735; 84156; 84550; 85025; 85027; 96374; 96376; 99211; J0690; J1100; J1200; J1885; J2274; J2590; J2765; J3010; J3475; J3490; J7121

== ENCOUNTER 2022-10-23 12:10 | Emergency (ER) | payer MEDICAID, SELFPAY ==
[2022-10-23 12:13] VITALS: BP 126/74; PULSE 67; RESP 16; TEMP 36.3; O2SAT 99
--- NOTE | 2022-10-23 12:30 | W.ED.SKABFB ---
HPI - Skin/Abscess/Foreign Bdy General: Chief complaint: Skin/Abscess/Foreign Body Stated complaint: open csection scar Time Seen by Provider: 10/23/22 12:13 History of Present Illness: Patient presents with complaints of incision dehiscence with foul-smelling drainage patient states this wound dehisced and started having foul-smelling drainage about 2 days ago. Otherwise the wound looks good and the patient does not have any other complaints about it. Patient says she does have a hemorrhoid that is irritated and bled this morning but has now stopped. Onset (ago): day(s) (2 to 3 days ago) Location: generalized ( incision) Severity: mild Relieving factors: none Exacerbating factors: none Associated symptoms: Reports other (Drainage and a foul smell); Deny chills, fever(s), nausea or vomiting Treatments prior to arrival: none Review of Systems Const: Denies: fever(s) or chills Eyes: Denies: change in vision or blurry vision Card: Denies: chest pain or palpitations Resp: Denies: dyspnea or productive cough GI: Denies: abdominal pain, nausea, vomiting or diarrhea : Denies: flank pain or difficulty voiding Musc: Denies: neck pain or back pain Skin/Breast: Reports: other (Wound dehiscence and foul-smelling drainage) Neuro: Denies: headache(s) or numbness in extremities Psych: Denies: anxiety or depression Endo: Denies: polyuria or polydipsia PFSH ED PFSH: Medical History History of pre-eclampsia induced at 36 weeks due to development of pre-eclampsia with first History of pre-eclampsia Increased liver enzymes No pertinent past medical history neghx: htn,dm,thyroid,dvt/pe PCP: None Severe preeclampsia Supervision of other high-risk Surgical History No pertinent past surgical history Family History Family/Other Breast cancer Paternal Aunt--dx age unknown Grandmother Diabetes Maternal Grandfather Diabetes Maternal Father Heart disease Hypertension Denies family history of Colon cancer Ovarian cancer Hypercholesteremia Uterine cancer Thyroid disease Stroke Social History Smoking and tobacco status: never smoked Physical Exam Const: COMMON NORMALS: no acute distress, average body habitus, patient oriented x3, no limitations, healthy appearing, alert and well nourished HENMT: COMMON NORMALS: normocephalic, atraumatic, hearing grossly normal bilaterally, external ears normal, Normal external nose present and moist oral mucous membranes HEAD & SCALP: normocephalic and atraumatic NOSE: Normal external nose present EXTERNAL EAR: Yes external ears normal Neck/C-Spine: COMMON NORMALS: full ROM, no lymphadenopathy, supple, no meningeal signs, no JVD and Thyroid normal THYROID: Thyroid normal Chest: COMMONS NORMALS: normal inspection of the chest and normal palpation of entire chest wall Resp: COMMON NORMALS: normal respiratory effort, No retractions, No use of accessory muscles and clear to auscultation bilaterally AUSCULTATION: clear to auscultation bilaterally Cardio: COMMON NORMALS: no JVD, regular rate, regular rhythm, S1 normal heart sound present, S2 normal heart sound present, No gallops present (Cardio), No clicks present (Cardio) and No murmurs present (Cardio) RATE: regular rate RHYTHM: regular rhythm HEART SOUNDS: S1 normal heart sound present and S2 normal heart sound present GI: OTHER: Abdomen is soft nontender positive bowel sounds all 4 quadrants no rebound guarding rigidity, incision is noted with 2 areas of dehiscence approximately 1 to 2 cm each, nonerythematous, no purulent drainage at this time, there is a foul-smelling odor from the area. Neuro: COMMON NORMALS: patient oriented x3 SENSORIUM/ORIENTATION: Yes alert MENINGEAL SIGNS: Yes no meningeal signs Course Vital Signs: Vital signs: Vital Signs Temperature 97.4 F L 10/23/22 12:13 Pulse Rate 67 10/23/22 12:13 Respiratory Rate 16 10/23/22 12:13 Blood Pressure 126/74 10/23/22 12:13 Pulse Oximetry 99 10/23/22 12:13 MDM - Skin/Abscess/Foreign Bdy Medicial Decision Making Patient presents to the ER with complaining of incision dehiscence and having foul-smelling drainage over the last 2 to 3 days. Patient also is complaining of hemorrhoid is irritated and was bleeding this morning. Patient denies any nausea vomiting diarrhea fevers chills etc. Patient was examined patient does have wound dehiscence with a foul-smelling odor no active drainage noted at this time. Wound cultures were obtained, patient is currently breast-feeding. Patient will be placed on antibiotics and await the culture results. 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 Differential Diagnosis Likely abscess of skin or subcutaneous tissue Medical Records I reviewed the patient's medical records. Lab Data I reviewed the patient's lab results. Discharge Plan Discharge Patient Disposition: Home Clinical Impression: Dehiscence of external surgical wound Qualifiers: Encounter type: initial encounter Qualified Code(s): T81.31XA - Disruption of external operation (surgical) wound, not elsewhere classified, initial encounter Condition: Stable Prescriptions: New cephalexin 500 mg capsule 500 mg PO Q6H 7 Days Qty: 28 0RF No Action ferrous sulfate 325 mg (65 mg iron) tablet 325 mg PO DAILY prenat.vits,roxanne,[id number] Tablet 1 tab PO DAILY citalopram [Celexa] 20 mg tablet 20 mg PO DAILY Qty: 30 6RF ibuprofen 800 mg Tablet 800 mg PO TID Qty: 30 0RF hydrocodone-acetaminophen 5-325 mg Tablet 1 tab PO Q4H PRN (Reason: Moderate To Severe Pain) Qty: 30 0RF docusate sodium 100 mg Capsule 100 mg PO BID Qty: 60 0RF Discharge Orders: Discharge ED (Routine); Ordered 10/23/22 Ordered By: Travis Moyer Referrals: Melany Gamble MD [Primary Care Provider] - 1 week Discharge Activity: Resume usual activity Patient Instructions: Wound Dehiscence (ED), Wound Care (General) Coding Level of Care Code ED New Car 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
== END 2022-10-23 12:48 | disposition home or self-care (01) ==
PROVIDERS: Emergency Provider Emergency Medicine; PCP Obstetrics & Gynecology
DX: O90.0 Disruption of cesarean delivery wound (principal)
CPT/HCPCS: 87070; 99283

== ENCOUNTER → 2023-10-11 08:17 | Outpatient (BNVA) | payer SELFPAY | PROVIDERS: Visit Provider Nurse Practitioner Women's Health | DX: N92.6 Irregular menstruation, unspecified (principal) | CPT/HCPCS: 80053; 80307; 81025; 82570; 84156; 84439; 84443; 84481; 85025; 86592; 86762; 86803; 86850; 86900; 87086; 87340; 87806 ==

== ENCOUNTER → 2023-10-12 10:29 | Outpatient (BNVA) | payer SELFPAY | PROVIDERS: Visit Provider Nurse Practitioner Women's Health | DX: Z36.87 Encounter for antenatal screening for uncertain dates (principal) | CPT/HCPCS: 76801 ==

== ENCOUNTER → 2023-10-18 07:57 | Outpatient (BNVA) | payer SELFPAY | PROVIDERS: Visit Provider Nurse Practitioner Women's Health | DX: Z34.90 Encounter for supervision of normal pregnancy, unspecified, unspecified trimester (principal) | CPT/HCPCS: 81000 ==

== ENCOUNTER → 2023-11-09 08:08 | Outpatient (BNVA) | payer MEDICAID, SELFPAY | PROVIDERS: Visit Provider Obstetrics & Gynecology | DX: Z34.90 Encounter for supervision of normal pregnancy, unspecified, unspecified trimester (principal) | CPT/HCPCS: 81000 ==

== ENCOUNTER → 2023-11-24 08:19 | Outpatient (BNVA) | payer MEDICAID, SELFPAY | PROVIDERS: Visit Provider Nurse Practitioner Women's Health | DX: Z34.92 Encounter for supervision of normal pregnancy, unspecified, second trimester (principal) | CPT/HCPCS: 84315; 87491; 87591 ==

== ENCOUNTER → 2024-01-02 09:31 | Outpatient (BNVA) | payer MEDICAID, SELFPAY | PROVIDERS: Visit Provider Obstetrics & Gynecology | DX: O09.299 Supervision of pregnancy with other poor reproductive or obstetric history, unspecified trimester (principal); Z3A.21 21 weeks gestation of pregnancy | CPT/HCPCS: 76805; 81000 ==

== ENCOUNTER → 2024-02-01 14:48 | Outpatient (BNVA) | payer MEDICAID, SELFPAY | PROVIDERS: Visit Provider Obstetrics & Gynecology | DX: Z34.90 Encounter for supervision of normal pregnancy, unspecified, unspecified trimester (principal) | CPT/HCPCS: 76816; 82950; 84315 ==

== ENCOUNTER → 2024-02-15 08:12 | Outpatient (BNVA) | payer MEDICAID, SELFPAY | PROVIDERS: Visit Provider Obstetrics & Gynecology | DX: Z34.90 Encounter for supervision of normal pregnancy, unspecified, unspecified trimester (principal) | CPT/HCPCS: 81000 ==

== ENCOUNTER → 2024-02-29 08:17 | Outpatient (BNVA) | payer MEDICAID, SELFPAY | PROVIDERS: Visit Provider Obstetrics & Gynecology | DX: Z34.90 Encounter for supervision of normal pregnancy, unspecified, unspecified trimester (principal) | CPT/HCPCS: 81000 ==

== ENCOUNTER → 2024-03-28 08:28 | Outpatient (BNVA) | payer MEDICAID, SELFPAY | PROVIDERS: Visit Provider Nurse Practitioner Women's Health | DX: Z34.90 Encounter for supervision of normal pregnancy, unspecified, unspecified trimester (principal) | CPT/HCPCS: 81000 ==

== ENCOUNTER → 2024-04-03 11:10 | Outpatient (BNVA) | payer MEDICAID, SELFPAY | PROVIDERS: Visit Provider Obstetrics & Gynecology | DX: Z36.4 Encounter for antenatal screening for fetal growth retardation (principal); Z3A.35 35 weeks gestation of pregnancy | CPT/HCPCS: 76816 ==

== ENCOUNTER → 2024-04-11 14:38 | Outpatient (BNVA) | payer MEDICAID, SELFPAY | PROVIDERS: Visit Provider Obstetrics & Gynecology | DX: O09.299 Supervision of pregnancy with other poor reproductive or obstetric history, unspecified trimester (principal) | CPT/HCPCS: 81000; 87081 ==

== ENCOUNTER → 2024-04-18 13:53 | Outpatient (BNVA) | payer MEDICAID, SELFPAY | PROVIDERS: Visit Provider Obstetrics & Gynecology | DX: Z34.90 Encounter for supervision of normal pregnancy, unspecified, unspecified trimester (principal) | CPT/HCPCS: 81000 ==

== ENCOUNTER → 2024-04-25 15:22 | Outpatient (BNVA) | payer MEDICAID, SELFPAY | PROVIDERS: Visit Provider Obstetrics & Gynecology | DX: Z34.90 Encounter for supervision of normal pregnancy, unspecified, unspecified trimester (principal) | CPT/HCPCS: 81000 ==

== ENCOUNTER 2024-05-03 09:39 | Inpatient (IN) | payer MEDICAID, SELFPAY ==
[2024-05-03] VITALS (24 sets, daily range): BP systolic 110–139; BP diastolic 58–90; PULSE 58–96; RESP 14–17; TEMP 35–36.7; O2SAT 98–99; BMI 40.3
--- NOTE | 2024-05-03 00:56 | P.HP_ITS ---
Providers/Chief Complaint Admitting Physician: Ramesh James MD Primary PUBLIC HEALTH AIDES TEACHER: Ramesh James MD Chief Complaint: Epi Consult HPI PUBLIC HEALTH AIDES TEACHER History of Present Illness Tara Oliver is a 23 year old female EDC May 08, 2024 At 39 w 2 d no complications h/o x one patient wants repeat now scheduled for repeat c-s No c/o + movements Medications/Allergies Home Medications Medication Instructions Recorded Confirmed Last Taken Type aspirin 81 mg tablet,delayed 81 mg PO DAILY 10/11/23 04/25/24 Unknown History release (Adult Low Dose Aspirin) vits no.126-ferrous fum 1 tab PO DAILY #90 tabs 11/24/23 04/25/24 Unknown Rx 28 mg iron-folic acid 800 mcg tablet (Classic ) citalopram 40 mg tablet See Rx Instructions .Route 03/11/24 04/25/24 Unknown Rx .COMPLEX #60 tabs Allergies Allergy/AdvReac Type Severity Reaction Status Date / Time amoxicillin Allergy Mild ADR-Itching Verified 04/25/24 11:08 PFSH PUBLIC HEALTH AIDES TEACHER PFSH: Medical History Increased liver enzymes Severe preeclampsia History of pre-eclampsia Supervision of other high-risk History of pre-eclampsia induced at 36 weeks due to development of pre-eclampsia with first No pertinent past medical history neghx: htn,dm,thyroid,dvt/pe PCP: None Surgical History No pertinent past surgical history Family History Family/Other Breast cancer Paternal Aunt--dx age unknown Grandmother Diabetes Maternal Grandfather Diabetes Maternal Father Heart disease Hypertension Denies family history of Colon cancer Ovarian cancer Hypercholesteremia Uterine cancer Thyroid disease Stroke Social History Smoking and tobacco/nicotine status: never used tobacco/nicotine History History History 3 Term 1 1 Miscarriages/Ectopic 0 Living Children 2 Care ANGELINA Calculator Estimated Delivery Date Method Current WG Current Estimate 05/08/24 LMP (Certain) 39w 2d Other Estimates 05/13/24 Ultrasound #1 38w 4d Physical Exam Narrative: Weight 236 lbs; 5?7? VS normal General comfortable, awake, alert Lungs: clear Cor: RRR Abd: nontender FH 38 cm, cephalic Ext: no edema Results Labs OB ([facility]): Obstetrics US 04/03/24 Blood Type A Positive 10/11/23 Antibody Screen Negative 10/11/23 Hct 41.0 % (36-47) 10/11/23 Hgb 13.50 g/dL (11.27-16.99) 10/11/23 Rho(D) Type Rh positive 10/11/23 Plt Count 229 10^3/cmm (157-399) 10/11/23 Hep Bs Antigen Non-reactive (Nonreactive) 10/11/23 Hepatitis C Antibody Non-reactive (Nonreactive) 10/11/23 Rubella IgG Antibody > 500.0 IU/mL (0.0-10.0) H 10/11/23 RPR Nonreactive (Nonreactive) 10/11/23 HIV 1&2 Ab & HIV 1 Ag Non-reactive (Non-Reactiv) 10/11/23 TSH 0.97 uIU/mL (0.27-4.20) 10/11/23 Free T4 1.06 ng/dL (0.82-1.77) 10/11/23 C.trachomatis RNA (TMA) Not detected (NOT DETECTED) N.gonorrhoeae RNA (TMA) Not detected (NOT DETECTED) T. vaginalis Amp RNA Not detected (NOT DETECTED) 11/24/23 Chlamydia/GC Comment See note 11/24/23 Glucose 1 Hr 50 gm 84 mg/dL (85-140) L 02/01/24 Gest Glucose Tolerance 108 mg/dL 08/05/22 Uric Acid 4.3 mg/dL (2.4-5.7) 10/06/22 HCG, Qual Positive (Negative) H 10/11/23 Urine Opiates Screen Negative ng/mL (Negative) 10/11/23 Ur Barbiturates Screen Negative ng/mL (Negative) 10/11/23 Ur Phencyclidine Scrn Negative ng/mL (Negative) 10/11/23 Ur Amphetamines Screen Negative ng/mL (Negative) 10/11/23 U Benzodiazepines Scrn Positive ng/mL (Negative) H 10/11/23 Urine Cocaine Screen Negative ng/mL (Negative) 10/11/23 U Marijuana (THC) Screen Positive ng/mL (Negative) H Micro Urine Specimen 10/11/23 A&P Assessment and plan (1) : 39 w 2 d Qualifiers: Weeks of gestation: 11 weeks Qualified Code(s): Z3A.11 - 11 weeks gestation of (2) H/O section: h/o x one patient wants repeat procedure and risks explained Risks include, but not limited to, infection, bleeding, injury to internal organs, anesthesia, blood transfusions patient understands and wants to proceed Attestations Medical Necessity Statement*: patient admitted for scheduled repeat at 39 w 2 d Coding Level of Care Code Acute Code for Chg Fwd Diagnoses 11 weeks gestation of Z3A.11 Weeks of gestation: 11 weeks H/O section Z98.891 Time Spent (min) 30
[2024-05-03 07:37] LABS: Basophils % 0.3 %; Eosinophils # 0.1 10^3/uL (0.0-0.8); Eosinophils % 0.5 %; Lymphocytes % 19.7 %; Mean Corpuscular HGB Conc 32.4 g/dL (30-55); Mean Corpuscular Hemoglobin 28.2 pg (27-33); Mean Platelet Volume 12.5 fL (7.4-10.4); Monocytes # 0.4 10^3/uL (0.2-0.9); Monocytes % 3.7 %; Neutrophils # 7.77 10^3/uL (1.8-7.7); Neutrophils % 75.2 %; Nucleated Red Blood Cells % 0 %; Platelet Count 209 10^3/cmm (157-399); Red Blood Count 4.71 10^6/uL (3.85-5.65); Red Cell Distribution Width 13.4 % (12.1-15.1); White Blood Count 10.32 10^3/uL (3.29-11.43)
[2024-05-03] MEDS: lactated ringers 1,000 ML 999 ML IV (08:03)
[2024-05-03 08:48] LABS: Amphetamines Screen Urine Negative (Negative); Barbiturates Screen Urine Negative (Negative); Benzodiazepines Screen Urine Negative (Negative); Cocaine Screen Urine Negative (Negative); Opiate Screen Urine Negative (Negative); PCP Screen Urine Negative (Negative); THC Screen Urine Positive (Negative)
[2024-05-03] MEDS: famotidine 20 mg/2 mL INJ IVP (09:15)
[2024-05-03] MEDS: metoclopramide 5 mg/mL SDV 2 mL 10 MG IVP (09:15)
[2024-05-03] MEDS: citric acid-sodium citrate 30 mL UDC PO (09:15)
[2024-05-03] MEDS: ceFAZolin 2,000 mg SDV 2000 MG IVP (09:18)
--- NOTE | 2024-05-03 09:24 | W.PM.OPSUD ---
Surgery/Procedure H&P Update DATE OF PROCEDURE: May 03, 2024 DATE H&P PERFORMED: 05/03/24 H&P UPDATE INFORMATION: I have reviewed H&P completed within last 30 days, I have examined patient prior to procedure and No changes to prior documentation PREOP DIAGNOSIS: 39 w 2 d, previous , for scheduled repeat PLANNED PROCEDURE: Operation Date: 05/03/24 09:00 Proposed Procedures p Section Repeat(Not Applicable) - Ramesh James MD
--- NOTE | 2024-05-03 10:45 | PM.OP ---
Operative Report Date of procedure: May 03, 2024 Pre-op diagnosis: 39 2/7 weeks gestation Previous x one For repeat Post-op diagnosis: same Post-op findings: 2+ meconium-stained amniotic fluid Vigorous infant Normal placenta and cord Normal uterus, tubes, and ovaries Procedure done: Repeat low-transverse Implants: none Specimens removed/disposition: placenta and cord, discarded Surgeon: Ramesh James MD Anesthesia: Spinal Estimated blood loss (mL): 500 Complications: none Findings: 2+ meconium-stained amniotic fluid Vigorous Normal placenta and cord Normal uterus, tubes, and ovaries Condition: stable Disposition: floor Brief History: 23 y.o. EDC May 08, 2024 At 39 w 2 d no complications h/o x one patient wants repeat Procedure: Informed consent signed. Patient was taken to the operating room, placed supine in the left lateral tilt position. Spinal anesthesia and a Conner catheter were already placed. The abdomen was prepped and draped in the usual sterile fashion. A Pfannenstiel incision was made over an old scar and carried down through skin and subcutaneous tissue and fascia. The fascial incision was extended laterally with Lynn scissors. The fascia was from the underlying rectus muscles. The rectus muscles were split in the midline. The peritoneum was entered bluntly avoiding underlying organs. A bladder flap was created. A low transverse uterine incision was made and extended laterally bluntly avoiding the uterine vessels. 2+ meconium-stained amniotic fluid was seen. The baby was delivered in cephalic presentation atraumatically. The baby was suctioned. The cord was clamped and cut and the baby was handed to an awaiting pediatric staff. The placenta was manually removed intact. The uterus was not exteriorized. The uterine cavity was bluntly curetted with wet laps. The uterine incision was then closed with a continuous interlocking stitch of O chromic. Adequate hemostasis was seen. No bleeding was seen. The uterine incision was again inspected and found to have good hemostasis. The fascia was then closed with a continuous stitch of O-Vicryl. Additional interrupted stitches of O-Vicryl were used for fascial closure. The subcutaneous tissue was irrigated and inspected for hemostasis. The skin was then reapproximated using Insorb dany. Postoperative condition stable Disposition to recovery room Estimated blood loss 500 cc, no replacement Sponge, needle, and instrument counts were correct x two There were no complications
--- NOTE | 2024-05-03 10:47 | P.ANESASSM_ITS ---
Pre-Anesthetic Assessment Height/Weight: Height 5 ft 7 in Preop Diagnosis: Planned Operation Date: 05/03/24 09:00 Proposed Procedures p Section Repeat 59908,O34.219(Not Applicable) - Ramesh James MD Was Beta Carley taken within 24 hours: N/A Was Clonidine taken within 24 hours: N/A Social No alcohol and No tobacco Exam alert, oriented x 3, clear to auscultation bilaterally and regular rate & rhythm Airway Submandibular: within normal limits Cervical ROM: within normal limits Mallampati: Class II Dentition: full Comments: Comments: Few missing bottom teeth Anesthetic Plan ASA status: 2 Anesthesia: Regional (specify below) Other: No prior issues with anesthesia . Previously emergent due to breech presentation. No issues at that time with spinal Patient denies any back issues Denies any pulmonary or cardiac issues METs greater than 4 Will need to obtain labs prior to procedure Plan for spinal anesthetic Medications/Allergies Home Medications Medication Instructions Recorded Confirmed Last Taken Type aspirin 81 mg tablet,delayed 81 mg PO DAILY 10/11/23 05/03/24 Unknown History release (Adult Low Dose Aspirin) vits no.126-ferrous fum 1 tab PO DAILY #90 tabs 11/24/23 05/03/24 Unknown Rx 28 mg iron-folic acid 800 mcg tablet (Classic ) citalopram 40 mg tablet See Rx Instructions .Route 03/11/24 05/03/24 Unknown Rx .COMPLEX #60 tabs Allergies Allergy/AdvReac Type Severity Reaction Status Date / Time amoxicillin Allergy Mild ADR-Itching Verified 04/25/24 11:08 [facility] Anesthesia Medical History Increased liver enzymes Severe preeclampsia History of pre-eclampsia Supervision of other high-risk History of pre-eclampsia induced at 36 weeks due to development of pre-eclampsia with first No pertinent past medical history neghx: htn,dm,thyroid,dvt/pe PCP: None Surgical History No pertinent past surgical history Family History Family/Other Breast cancer Paternal Aunt--dx age unknown Grandmother Diabetes Maternal Grandfather Diabetes Maternal Father Heart disease Hypertension Denies family history of Colon cancer Ovarian cancer Hypercholesteremia Uterine cancer Thyroid disease Stroke Social History Smoking and tobacco/nicotine status: never used tobacco/nicotine Data Anesthesia 05/03/24 22:40 Cardiac Studies: 2 No Data to Display
--- NOTE | 2024-05-03 11:01 | ANE.PACU2 ---
Inpatient post-anesthesia follow up: Airway intact: Yes Vital signs: Temperature 97.7 F Pulse Rate 60 Respiratory Rate 16 Blood Pressure 121/74 Pulse Oximetry 97 Oxygen Delivery Me thod Room Air Oxygen Flow Rate Fraction of Inspir ed Oxygen Hydration adequate: Yes Nausea and vomiting: No Pain level: 1 Mental status: Baseline
[2024-05-03] MEDS: dextrose 5%-lactated ringers 1,000 ML 125 ML IV (14:17)
[2024-05-03] MEDS: sodium chloride 0.9% 500 ML 999 ML IV (15:24)
[2024-05-03] MEDS: ketorolac 30 mg/mL INJ IVP ×2 (16:50→22:35)
[2024-05-03] MEDS: docusate sodium 100 mg Capsule PO (20:22)
[2024-05-03 23:40] LABS: Hematocrit 35.4 % (36-47); Mean Corpuscular HGB Conc 32.2 g/dL (30-55); Mean Corpuscular Hemoglobin 28.6 pg (27-33); Mean Corpuscular Volume 88.7 fl (85-98); Mean Platelet Volume 12.6 fL (7.4-10.4); Platelet Count 157 10^3/cmm (157-399); Red Blood Count 3.99 10^6/uL (3.85-5.65); Red Cell Distribution Width 13.4 % (12.1-15.1); White Blood Count 12.21 10^3/uL (3.29-11.43)
[2024-05-04] MEDS: ketorolac 30 mg/mL INJ IVP (04:53)
[2024-05-04 04:57] VITALS: BP 104/66; PULSE 71; RESP 16; TEMP 36.8; O2SAT 97
[2024-05-04 06:00] VITALS: BMI 40.3
[2024-05-04] MEDS: lanolin oint 7 gm 1 APPLIC TOPICAL (08:15)
[2024-05-04] MEDS: docusate sodium 100 mg Capsule PO (09:27)
[2024-05-04] MEDS: HYDROcodone-acetaminophen 5-325 mg Tablet PO ×2 (09:27→13:44)
[2024-05-04] MEDS: PRENATAL VIT NO.130/IRON/FOLIC 1 EACH TABLET PO (09:27)
[2024-05-04 09:36] VITALS: BP 121/74; PULSE 60; RESP 16; TEMP 36.5
[2024-05-04] MEDS: citalopram 20 mg Tablet 40 MG PO (09:52)
[2024-05-04] MEDS: simethicone 80 mg Chew PO (11:10)
--- NOTE | 2024-05-04 14:05 | P.PN_ITS ---
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 Subjective 2 Subjective: Interval history: no c/o except for moderate incisional pain eating, voiding, ambulating well no bleeding wants to go home without any difficulties Labor: Station: -3 Amniotic Membrane Status: Ruptured Monitor Mode: External Contraction Pattern: Regular Vitals/I&O/Wt Last Vital Signs Temp 98.1 F 05/04/24 16:10 Pulse 79 05/04/24 16:10 Resp 16 05/04/24 16:10 BP 131/68 05/04/24 16:10 Pulse Ox 97 05/04/24 04:57 O2 Del Method Room Air 05/04/24 09:36 Physical Exam 2 Narrative: comfortable afebrile, VS normal Abd: soft, nontender wound clean and dry Ext: normal Urinary Catheter Management: Conner: Cath Placed During This Visit: yes, but has since been removed by the nurse Reason for Continuing Indwelling Catheter: Decision to DC Catheter Urinary Catheter Date of Insertion: 05/03/24 Urinary Catheter Time of Insertion: 09:40 Date Urinary Catheter Removed: 05/04/24 Time Urinary Catheter Discontinued: 02:52 Data 05/03/24 22:40 A&P Assessment and plan (1) H/O section: POD #1 RCS doing well discharge to home today instructions and precautions given call/return if fever, chills, nausea, vomiting, headaches, abdominal pain, bleeding, inability to void, swelling, leg pain; feelings of depression or mood changes; wound redness, swelling, or discharge; chest pain; shortness of breath f/u in 1 week or PRN Attestations 2 Medical Necessity Statement*: patient s/p repeat , plan to discharge to home today Coding Level of Care Code Acute Code for Chg Fwd Diagnoses H/O section Z98.891 Time Spent (min) 20
--- NOTE | 2024-05-04 14:15 | PM.OBGYDC ---
Discharge Providers BUSINESS DEVELOPMENT ASSISTANT Date of Admission: 05/03/24 09:39 Date of Discharge: 05/04/24 Attending Provider at Admission: Ramesh James MD Attending Provider at Discharge: Ramesh James MD Consults: none Primary BUSINESS DEVELOPMENT ASSISTANT: Ramesh James MD Diagnoses at Discharge Discharge Diagnosis (1) H/O section: Details from hospital stay: 23 y.o. At 39 w 2 d no complications h/o x one patient wanted repeat repeat low-transverse was done on May 03, 2024 without any complications patient did well postop She wanted to go home on the first postoperative day Patient was discharged to home on postoperative day #1 with precautions and instructions Status: Acute Reason for Visit Reason for Visit: Brief History: 23 y.o. At 39 w 2 d no complications h/o x one patient wanted repeat Hospital Course Hospital Course 23 y.o. At 39 w 2 d no complications h/o x one patient wanted repeat repeat low-transverse was done on May 03, 2024 without any complications patient did well postop She wanted to go home on the first postoperative day Patient was discharged to home on postoperative day #1 with precautions and instructions Information Peripartum Data: Infant Delivery Method: complications: none Physical Exam Narrative: comfortable afebrile, VS normal Abd: soft, nontender wound clean and dry Ext: normal Urinary Catheter Management: Conner: Cath Placed During This Visit: yes, but has since been removed by the nurse Reason for Continuing Indwelling Catheter: Decision to DC Catheter Urinary Catheter Date of Insertion: 05/03/24 Urinary Catheter Time of Insertion: 09:40 Date Urinary Catheter Removed: 05/04/24 Time Urinary Catheter Discontinued: 02:52 History History History 3 Term 1 1 Miscarriages/Ectopic 0 Living Children 2 Discharge Data Studies Completed and Pending Laboratory Results WBC 12.21 10^3/uL (3.29-11.43) H 05/03/24 22:40 RBC 3.99 10^6/uL (3.85-5.65) 05/03/24 22:40 Hgb 11.40 g/dL (11.27-16.99) 05/03/24 22:40 Hct 35.4 % (36-47) L 05/03/24 22:40 MCV 88.7 fl (85-98) 05/03/24 22:40 MCH 28.6 pg (27-33) 05/03/24 22:40 MCHC 32.2 g/dL (30-55) 05/03/24 22:40 RDW 13.4 % (12.1-15.1) 05/03/24 22:40 Plt Count 157 10^3/cmm (157-399) 05/03/24 22:40 MPV 12.6 fL (7.4-10.4) H 05/03/24 22:40 Neut % (Auto) 75.2 % 05/03/24 07:20 Lymph % (Auto) 19.7 % 05/03/24 07:20 [place] % (Auto) 3.7 % 05/03/24 07:20 Eos % (Auto) 0.5 % 05/03/24 07:20 Baso % (Auto) 0.3 % 05/03/24 07:20 Neut # (Auto) 7.77 10^3/uL (1.8-7.7) H 05/03/24 07:20 Lymph # (Auto) 2.0 10^3/uL (0.8-4.8) 05/03/24 07:20 [place] # (Auto) 0.4 10^3/uL (0.2-0.9) 05/03/24 07:20 Eos # (Auto) 0.1 10^3/uL (0.0-0.8) 05/03/24 07:20 Baso # (Auto) 0.0 10^3/uL (0.0-0.1) 05/03/24 07:20 Nucleated RBC % (auto) 0 % 05/03/24 07:20 Nucleated RBCs # 0.0 /100WBC 05/03/24 07:20 Urine Opiates Screen Negative ng/mL (Negative) 05/03/24 08:00 Ur Barbiturates Screen Negative ng/mL (Negative) 05/03/24 08:00 Ur Phencyclidine Scrn Negative ng/mL (Negative) 05/03/24 08:00 Ur Amphetamines Screen Negative ng/mL (Negative) 05/03/24 08:00 U Benzodiazepines Scrn Negative ng/mL (Negative) 05/03/24 08:00 Urine Cocaine Screen Negative ng/mL (Negative) 05/03/24 08:00 U Marijuana (THC) Screen Positive ng/mL (Negative) H 05/03/24 08:00 Blood Type A Positive 05/03/24 07:20 Rho(D) Type Rh positive 05/03/24 07:20 Antibody Screen Negative 05/03/24 07:20 Procedures Performed repeat low-transverse Vitals Last Vital Signs Temp 98.1 F 05/04/24 16:10 Pulse 79 05/04/24 16:10 Resp 16 05/04/24 16:10 BP 131/68 05/04/24 16:10 Pulse Ox 97 05/04/24 04:57 O2 Del Method Room Air 05/04/24 09:36 Results Labs OB ([facility]): Obstetrics US 04/03/24 Blood Type A Positive 05/03/24 Antibody Screen Negative 05/03/24 Hct 35.4 % (36-47) L 05/03/24 Hgb 11.40 g/dL (11.27-16.99) 05/03/24 Rho(D) Type Rh positive 05/03/24 Plt Count 157 10^3/cmm (157-399) 05/03/24 Hep Bs Antigen Non-reactive (Nonreactive) 10/11/23 Hepatitis C Antibody Non-reactive (Nonreactive) 10/11/23 Rubella IgG Antibody > 500.0 IU/mL (0.0-10.0) H 10/11/23 RPR Nonreactive (Nonreactive) 10/11/23 HIV 1&2 Ab & HIV 1 Ag Non-reactive (Non-Reactiv) 10/11/23 TSH 0.97 uIU/mL (0.27-4.20) 10/11/23 Free T4 1.06 ng/dL (0.82-1.77) 10/11/23 C.trachomatis RNA (TMA) Not detected (NOT DETECTED) 11/24/23 N.gonorrhoeae RNA (TMA) Not detected (NOT DETECTED) 11/24/23 T. vaginalis Amp RNA Not detected (NOT DETECTED) 11/24/23 Chlamydia/GC Comment See note 11/24/23 Glucose 1 Hr 50 gm 84 mg/dL (85-140) L 02/01/24 Uric Acid 4.3 mg/dL (2.4-5.7) 10/06/22 HCG, Qual Positive (Negative) H 10/11/23 Urine Opiates Screen Negative ng/mL (Negative) 05/03/24 Ur Barbiturates Screen Negative ng/mL (Negative) 05/03/24 Ur Phencyclidine Scrn Negative ng/mL (Negative) 05/03/24 Ur Amphetamines Screen Negative ng/mL (Negative) 05/03/24 U Benzodiazepines Scrn Negative ng/mL (Negative) 05/03/24 Urine Cocaine Screen Negative ng/mL (Negative) 05/03/24 U Marijuana (THC) Screen Positive ng/mL (Negative) H 05/03/24 Micro Urine Specimen 10/11/23 Discharge Plan Discharge Patient Disposition: Home Condition: Stable Prescriptions: Continued Classic 28 mg iron- 800 mcg tablet 1 tab PO DAILY Qty: 90 3RF citalopram 40 mg tablet See Rx Instructions .ROUTE .COMPLEX Qty: 60 8RF Dose Instruction: TAKE ONE TABLET BY MOUTH ONCE DAILY Rx Instructions: TAKE ONE TABLET BY MOUTH ONCE DAILY Discontinued aspirin [Adult Low Dose Aspirin] 81 mg tablet,delayed release (DR/EC) 81 mg PO DAILY No Action oxycodone-acetaminophen [Percocet] 5-325 mg tablet 1 tab PO Q8H PRN (Reason: pain) 7 Days Qty: 20 0RF oxycodone-acetaminophen [Percocet] 5-325 mg tablet 1 tab PO BID PRN (Reason: pain) 10 Days Qty: 20 0RF hydrocortisone acetate [Anusol-HC] 25 mg suppository 25 mg UT DAILY Qty: 24 2RF oxycodone-acetaminophen [Percocet] 5-325 mg tablet 1 tab PO Q8H PRN (Reason: pain) 5 Days Qty: 14 0RF Discharge Orders: Discharge Order (Routine); Ordered 05/04/24 Ordered By: Ramesh James Referrals: Shannan Schreiber NP [Nurse Practitioner] - 05/21/24 8:30 am Ramesh James MD [Physician] - 06/13/24 11:00 am Discharge Diet: Usual diet Discharge Activity: Increase activity as tolerated Patient Instructions: Depression (DC), Preeclampsia and Eclampsia After Delivery (GEN), Hemorrhage (DC), OB [facility], OB Discharge Report, OB Food/Drug Interaction Guide, OB Care at Home, Opioid Safety, OB Home Care, Abnormal Bleeding Discharge Attestations BUSINESS DEVELOPMENT ASSISTANT Time Spent in Discharge Care*: less than 30 min Coding Level of Care Code Acute Code for Chg Fwd Diagnoses H/O section Z98.891 Time Spent (min) 20
[2024-05-04] MEDS: ibuprofen 800 mg tablet PO (16:00)
[2024-05-04 16:10] VITALS: BP 131/68; PULSE 79; RESP 16; TEMP 36.7
== END 2024-05-04 16:40 | disposition home or self-care (01) | DRG 788 ==
LOC: OPOB 09:39 → OBGYN 09:39
PROVIDERS: Student in an Organized Health Care Education/Training Program; Admitting Provider Obstetrics & Gynecology; Visit Provider Obstetrics & Gynecology
PROC: 10D00Z1 Extraction of Products of Conception, Low, Open Approach (ICD-10-PCS; CPT 59514; principal; 2024-05-03 09:00)
DX: O34.211 Maternal care for low transverse scar from previous cesarean delivery (principal); N85.8 Other specified noninflammatory disorders of uterus; Z3A.39 39 weeks gestation of pregnancy; Z37.0 Single live birth; O77.0 Labor and delivery complicated by meconium in amniotic fluid
CPT/HCPCS: 36415; 51702; 59025; 59409; 80306; 83986; 85025; 85027; 86850; 86900; 96374; 96376; 98960; J0690; J1885; J2274; J2371; J2405; J2765; J3010; J3490; J7040; J7120; J7121